=== PATIENT | female | born 1990 | race Caucasian/White ===

== ENCOUNTER 2019-07-21 23:04 | Emergency (ER) | payer MEDICAID, OTHER ==
[~2019-07-21] VITALS: Ht 161.3 cm; Wt 52.7 kg
[~2019-07-21 23:04] MED LIST: HYDR-3601 PO; IBUP-1542 PO; POLY17PO6 PO
[2019-07-21 23:10] VITALS: Ht 161.3 cm; Wt 52.7 kg
[2019-07-21] MEDS ORDERED: ONDANSETRON 4 MG INJ IV STA (23:39)
[2019-07-21] MEDS ORDERED: morphine 2 MG INJ IV STA (23:39)
[2019-07-22] MEDS ORDERED: SOD CHLORIDE 0.9% 1,000 ML IV ONE
[2019-07-22 02:08] VITALS: BP 98/53; PULSE 64; RESP 20
== END 2019-07-22 02:09 | disposition home or self-care (01) ==
LOC: FTE 23:04
DX: D72.829 Elevated white blood cell count, unspecified (principal); K59.00 Constipation, unspecified
CPT/HCPCS: 36415; 76830; 76856; 80053; 81003; 81025; 83690; 85025; 96374; 96375; 99285; J2270; J2405; J7030